=== PATIENT | female | born 1995 | race Caucasian/White ===

== ENCOUNTER 2018-04-19 08:45 | Outpatient (RCR) | payer OTHER | END 2018-04-22 | disposition home or self-care (01) | LOC: MKS.ESL.PT | DX: N94.11 Superficial (introital) dyspareunia (principal); Z90.89 Acquired absence of other organs ==

== ENCOUNTER 2018-06-03 08:00 | Outpatient (RCR) | payer OTHER | END 2018-06-03 10:15 | disposition home or self-care (01) | LOC: MKS.ESL.PT 08:00 | DX: N94.11 Superficial (introital) dyspareunia (principal) ==